=== PATIENT | male | born 1995 | race Caucasian/White ===

== ENCOUNTER 2017-08-26 10:46 | Emergency (ER) | payer OTHER ==
[~2017-08-26] VITALS: Ht 180.3 cm; Wt 98.9 kg
[2017-08-26 10:52] VITALS: BP 141/84; Ht 180.3 cm; Wt 98.9 kg
== END 2017-08-26 13:02 | disposition home or self-care (01) ==
LOC: ED 10:46
DX: J45.901 Unspecified asthma with (acute) exacerbation (principal); F17.200 Nicotine dependence, unspecified, uncomplicated
CPT/HCPCS: J7512; J7613; J7644

== ENCOUNTER 2017-09-12 00:13 | Emergency (ER) | payer OTHER ==
[~2017-09-12] VITALS: Ht 175.3 cm; Wt 100.2 kg
[2017-09-12 00:29] VITALS: BP 139/87; Ht 175.3 cm; Wt 100.2 kg
== END 2017-09-12 03:36 | disposition left against medical advice (07) ==
LOC: ED 00:13
DX: Z53.21 Procedure and treatment not carried out due to patient leaving prior to being seen by health care provider (principal)

== ENCOUNTER 2019-03-12 15:38 | Emergency (ER) | payer OTHER ==
[~2019-03-12] VITALS: Ht 180.3 cm; Wt 117.9 kg
[2019-03-12 16:12] VITALS: Ht 180.3 cm; Wt 117.9 kg
[2019-03-12 18:00] VITALS: BP 149/89
== END 2019-03-12 18:00 | disposition home or self-care (01) ==
LOC: ED 15:38
DX: L03.115 Cellulitis of right lower limb (principal); J45.909 Unspecified asthma, uncomplicated